=== PATIENT | female | born 1970 | race Caucasian/White ===

== ENCOUNTER 2021-04-03 14:16 | Emergency (ER) | payer OTHER ==
[2021-04-03 14:33] VITALS: BMI 23.6
[2021-04-03] MEDS ORDERED: CASIRIVIMAB/IMDEVIMAB 10 ML in SODIUM CHLORIDE 100 ML IVPB ONE (14:58)
[2021-04-03 17:58] VITALS: BP 131/88; PULSE 87; TEMP 98.6
== END 2021-04-03 18:54 | disposition home or self-care (01) ==
LOC: JER 14:16 → JCOVINFU 14:16
DX: U07.1 COVID-19 (principal)
CPT/HCPCS: 99284-25; Q0240